=== PATIENT | female | born 1935 | race Caucasian/White ===

== ENCOUNTER 2017-02-12 13:38 | Emergency (ER) | payer OTHER ==
[~2017-02-12] VITALS: Ht 167.6 cm; Wt 72.3 kg
[2017-02-12 13:35] VITALS: BP 115/50; PULSE 53; RESP 8; O2SAT 97
[~2017-02-12 13:38] MED LIST: ASPI-628 PO; DOCU-41 PO
[2017-02-12 14:01] LABS: BASOPHILS % (AUTO) 0.2 % (0-3); MONOCYTES % (AUTO) 8.6 % (4-12); Mean Corpuscular Hemoglobin 30.8 pg (27.0-35.0); Mean Corpuscular Volume 94.8 fL (81-100); NEUTROPHILS % (AUTO) 52.1 % (40-74); Platelet Count 210 bil/L (150-400)
--- NOTE | 2017-02-12 14:14 | ED.REPORT ---
HPI-General Illness Date of Service Feb 12, 2017 ED Provider: César Anderson MD 72 y/o female with no pertinent hx presents to the ED via EMS due to LOC earlier today. Pt was baking when she began feeling lightheaded, sweaty, and clammy. She went to the restroom, had a bowel movement, became more lightheaded , then lost consciousness while on the toilet. Per the , pt was unconscious for 3-4 minutes. She did not hit her head or fall to the floor. She reports feeling better after regaining consciousness and her only complaint at this time is feeling slightly fatigued. The pt has passed out twice before; 6 months ago after a fall and 3 years ago due to low electrolytes. Pt is not taking any blood thinners. Nursing Notes Stated Complaint: SYNCOPE Chief Complaint: Neuro Symptoms/ Deficits Nursing Notes Reviewed: Yes General Time Seen by MD: 13:52 Chief Complaint Other (syncope) Hx Obtained From: Patient, EMS Arrived By: Ambulance Sudden in Onset?: Yes Onset Occurred: Just prior to arrival Symptom Duration: 1 - 15 minutes Severity: Current: No pain currently Severity: Maximum: No pain Recent Healthcare: No recent doctor visit, No recent hospitalization Similar Sx Previous: No Past Medical History Past Medical History none reported Past Surgical History none reported Family History Noncontributory Smoking History Unknown if Ever Smoker Social History Other Social History: Good social support, Local resident Ambulatory Status Independent Review of Systems Full Review of Systems Constitutional: Reports: Fatigue Cardiovascular: Reports: Syncope GI: Denies: Diarrhea, Nausea, Vomiting Skin: Reports Diaphoresis Neurologic: Reports: Lightheaded, Syncope Complete sys rev & neg: except as marked. Physical Exam Vital Signs Vital Signs Date Time Temp Pulse Resp B/P Pulse Ox O2 Delivery O2 Flow Rate FiO2 02/12/17 17:44 55 16 131/56 100 Room Air 02/12/17 15:30 55 16 131/56 100 02/12/17 13:35 36.4 53 8 115/50 97 Room Air Initial VS: Reviewed Neck: Supple, Non-tender, Full range of motion Abdomen / GI: Soft, Non-tender, No guarding, No rebound, No distention Skin: Warm, Dry, No cyanosis Psychiatric: Mood/affect normal, Behavior normal, Normal thought content General/Constitutional: Awake, Alert, Cooperative Head / Eyes: Atraumatic, Normocephalic, PERRL, EOMI Pupils 3mm equal and round bilaterally. ENT: Atraumatic Slightly dry mucous membranes. Neck: Supple, No JVD, No carotid bruit, No tracheal deviation Respiratory / Chest: Atraumatic, Breath sounds NL, Breath sounds = bilat, No respiratory distress, No rales, No rhonchi, No wheezing Cardiovascular: Heart rate NL, Regular rhythm, Peripheral circulation NL, Pulses = bilaterally Soft systolic murmur at left lower sternal border (not a new murmur). Back: Atraumatic, Full range of motion No flank tenderness. Neurologic: Oriented X3, Speech NL, No motor deficits, No sensory deficits, CN II - XII intact Speaking fluently and in full, organized, linear sentences. No pronator drift. 5/5 strength bilaterally 5/5 strength lower extremity bilatarally Sensation intact bilateral lower extremities No dysmetria for the finger to nose testing Interpretation & Diagnostics Lab Results Interpretation Result Diagram: 02/12/17 1357 02/12/17 1357 Test 02/12/17 13:57 White Blood Count 5.7th/mm3 (3.8-10.1) Red Blood Count 4.41mil/mm3 (3.90-5.20) Hemoglobin 13.6g/dL (12.0-15.6) Hematocrit 41.8% (35.0-46.0) Mean Corpuscular Volume 94.8fL (81-100) Mean Corpuscular Hemoglobin 30.8pg (27.0-35.0) Mean Corpuscular Hemoglobin Concent 32.5% (32.0-37.0) Red Cell Distribution Width 13.2% (12.3-15.4) Platelet Count 210bil/L (150-400) Neutrophils (%) (Auto) 52.1% (40-74) Lymphocytes (%) (Auto) 34.9% (14-46) Monocytes (%) (Auto) 8.6% (4-12) Eosinophils (%) (Auto) 4.0% (0-5) Basophils (%) (Auto) 0.2% (0-3) Sodium Level 138mEq/L (134-144) Potassium Level 4.0mEq/L (3.5-5.2) Chloride Level 101mEq/L (97-108) Carbon Dioxide Level 21mmol/L (18-29) Blood Urea Nitrogen 12mg/dL (8-27) Creatinine 0.58mg/dL (0.57-1.00) Estimat Glomerular Filtration Rate 143mL/min (>59) Glucose Level 177mg/dL (60-99) Calcium Level 9.3mg/dL (8.5-10.1) Magnesium Level 2.0mg/dL (1.6-2.6) Total Bilirubin 0.6mg/dL (0.0-1.2) Aspartate Amino Transf (AST/SGOT) 18U/L (0-50) Alanine Aminotransferase (ALT/SGPT) 12U/L (0-32) Alkaline Phosphatase 67U/L (25-165) Troponin T < 0.010ug/L (0.0-0.011) Total Protein 7.1g/dL (6.4-8.4) Albumin 4.5g/dL (3.4-5.0) ECG Interpretation ECG Interpretation: Sinus rhythm with a rate of [address] bpm [address] No ST segment elevation No acute T wave abnormalities Inferior Q waves present Anterior Q waves present No prior EKGs available for comparison Time: 15:00 Interpreted by: ED physician X-Ray Chest Interpretation Chest Xray Interpretation: IMPRESSION: 1. No acute cardiopulmonary disease. 2. Large hiatal hernia redemonstrated. Dictated by: Julio Barnhart M.D. on 02/12/2017 at 14:25 Interpretation / Wet Read by: Interpret - Radiologist Re-Eval/Medical Decision Med Decision/Clinical Course 72 y/o female with no pertinent hx presents to the ED via EMS due to LOC earlier today. Pt was baking when she began feeling lightheaded, sweaty, and clammy. She went to the restroom, had a bowel movement, became more lightheaded , then lost consciousness while on the toilet. Per the , pt was unconscious for 3-4 minutes. She did not hit her head or fall to the floor. She reports feeling better after regaining consciousness and her only complaint at this time is feeling slightly fatigued. The pt has passed out twice before; 6 months ago after a fall and 3 years ago due to low electrolytes. Pt is not taking any blood thinners. Here in the emergency department the patient is afebrile, hemodynamically stable , neurologically intact and in no apparent distress. Examination reveals no evidence of trauma. EKG obtained and interpreted by myself as documented above. CXR: 1. No acute cardiopulmonary disease. 2. Large hiatal hernia redemonstrated. LABS: CBC: unremarkable CMP: unremarkable Troponin: negative Presentation most likely due to vasovagal event given Lasix history thereof with syncope occurring in the setting of bowel movement and typical presyncopal symptoms of nausea, diaphoresis and lightheadedness. Patient treated here in the emergency department with 1 L of normal saline. She reported continually feeling completely better. Orthostatic vital signs negative. No evidence of dysrhythmia, prolonged QT interval, negative initial w/u for ACS and no evidence intracranial abnormality including mass/aneurysm/hemorrhage. Also no evidence PNA or lung mass. Low suspicion PE due to lack of swelling in lower extrems, lack of calf pain, non-tachypneic, non-tachy, no hemoptysis, no desats. No electrolyte abnormalities. Prior to discharge follow-up and return precautions were reviewed in detail with the patient who verbalized understanding and agreement with the plan. The patient was discharged in stable condition. Source of Hx: Old records, EMS Time of Eval: 16:14 Re-Evaluation/Progress Note: Informed the pt of diagnosis and plan to discharge. Pt understood and agreed witht the plan. F/U and RTER instructions given. All questions answered. Counseled Regarding: Diagnosis, Lab results, Need for follow-up, When/why to return to ED Discharge & Departure Primary Impression: Vasovagal syncope Additional Impressions: Lightheadedness Dehydration Disposition: Home Discharge Condition All VS Reviewed: Yes Condition: Stable Patient Instructions: Syncope (ED) Additional Instructions: Thank you for seeking care at the emergency room. It is difficult for us to make definitive diagnoses in the ED but we believe that you experienced "vasovagal syncope". This is a cause of passing out often associated with feeling sweaty, nauseated and as in your case having a bowel movement Our primary goal today in the ED was to evaluate you for any life-threatening conditions. Your evaluation was reassuring. You should follow-up with your primary doctor in the next week. Make sure to rest and drink plenty of fluids. You should return to the ED immediately if you develop recurrent events of passing out, passing out with exertion, confusion, headache, fevers, vomiting, cough, shortness of breath, chest pain, lightheadedness, weakness or any other concerning signs or symptoms. Thank you for letting us partake in your care today. Referrals: Laurent Zayas MD Attestation Portions of this note were transcribed by Jacquie Aquino. I, Dr. Anderson personally performed the history, physical exam and medical decision-making; I reviewed and confirmed the accuracy of the information in the transcribed note. Signed by: Aminta Silvestre, 02/12/2017 at 1700. copies to: Laurent Zayas MD, Beck O MD Feb 12, 2017 14:14 Jerry Mensah Feb 12, 2017 14:43 Jacquie Aquino Feb 12, 2017 15:07
[2017-02-12 14:22] LABS: TROPONIN T < 0.010 ug/L (0.0-0.011)
--- NOTE | 2017-02-12 14:29 | DRSVH ---
PROCEDURE: X-RAY CHEST ONE VIEW, PORTABLE ([id number]) INDICATIONS: syncope TECHNIQUE: One view of the chest was acquired. COMPARISON: [facility], , CHEST 1VW (PORTABLE), 05/19/2014, 12:47. FINDINGS: Surgical changes and devices: None. Lungs and pleura: No pleural effusions or pneumothorax. There is mild linear scarring redemonstrate d in the left midlung. Mediastinum: There is a large hiatal hernia again noted. Heart size is normal. Bones and chest wall: No suspicious bony lesions. Overlying soft tissues appear unremarkable. IMPRESSION: 1. No acute cardiopulmonary disease. 2. Large hiatal hernia redemonstrated. Dictated by: Julio Barnhart M.D. on 02/12/2017 at 14:25 Approved by: Julio Barnhart M.D. on 02/12/2017 at 14:27
[2017-02-12 15:30] VITALS: BP 131/56; PULSE 55; RESP 16; O2SAT 100
[2017-02-12 17:44] VITALS: BP 131/56; PULSE 55; RESP 16; O2SAT 100
== END 2017-02-12 16:50 | disposition home or self-care (01) ==
LOC: MERGE 13:38 → EDBD 13:38 → SED 13:38
DX: R55 Syncope and collapse (principal); R42 Dizziness and giddiness; E86.0 Dehydration